=== PATIENT | female | born 1985 | race Caucasian/White ===

== ENCOUNTER 2022-07-05 10:46 | Emergency (ER) | payer MEDICAID ==
[~2022-07-05] VITALS: Ht 165.1 cm; Wt 104.8 kg
[2022-07-05 11:14] VITALS: BP 120/84
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
[2022-07-05] MEDS ORDERED: CYCL5TAB PO (12:09)
[2022-07-05] MEDS ORDERED: IBUP-1955 PO (12:09)
--- NOTE | 2022-07-05 12:19 | NUR ---
Patient discharged to home in stable condition. Written and verbal after care instructions given. Patient verbalizes understanding of instruction.
== END 2022-07-05 12:19 | disposition home or self-care (01) ==
LOC: ER 10:53
DX: S16.1XXA Strain of muscle, fascia and tendon at neck level, initial encounter (principal); M54.50 Low back pain, unspecified; V89.2XXA Person injured in unspecified motor-vehicle accident, traffic, initial encounter; Y93.89 Activity, other specified; Y92.89 Other specified places as the place of occurrence of the external cause; Y99.8 Other external cause status
CPT/HCPCS: 82962-TC

== ENCOUNTER 2022-10-31 09:36 | Emergency (ER) | payer MEDICAID ==
[~2022-10-31] VITALS: Ht 167.6 cm; Wt 93.0 kg
[~2022-10-31 09:36] MED LIST: CYCL5TAB PO; IBUP-1955 PO
[2022-10-31 09:44] VITALS: BP 102/74; TEMP 98.4
[2022-10-31] MEDS ORDERED: FAMOTIDINE (20 MG) 20 MG TABLET ONE (10:22)
[2022-10-31] MEDS ORDERED: predniSONE 20 MG TABLET ONE (10:22)
[2022-10-31] MEDS ORDERED: diphenhydrAMINE HCL 25 MG CAPSULE ONE (10:22)
[2022-10-31] MEDS ORDERED: PRED50TA PO (10:29)
[2022-10-31] MEDS ORDERED: FAMOTIDINE (20 MG) 20 MG TABLET PO ONE (10:30)
[2022-10-31] MEDS ORDERED: DIPHENHYDRAMINE HCL 12.5 MG/5 ML UDC PO ONE (10:30)
[2022-10-31] MEDS ORDERED: predniSONE 50 MG TABLET PO ONE (10:30)
[2022-10-31 11:16] VITALS: O2SAT 100
== END 2022-10-31 11:17 | disposition home or self-care (01) ==
LOC: ER 09:36
DX: R21 Rash and other nonspecific skin eruption (principal)
CPT/HCPCS: 99284; Q0163 ×2; J7512

== ENCOUNTER 2024-08-12 17:33 | Emergency (ER) | payer SELFPAY ==
[~2024-08-12] VITALS: Ht 165.1 cm; Wt 93.0 kg
[~2024-08-12 17:33] MED LIST changes: +PRED50TA PO
[2024-08-12] MEDS ORDERED: DICL100G34 TP (19:55)
[2024-08-12] MEDS ORDERED: IBUP-1490 PO (19:55)
[2024-08-12 20:15] VITALS: BP 109/71; TEMP 97.6; O2SAT 98
== END 2024-08-12 20:15 | disposition home or self-care (01) ==
LOC: ER 17:42
DX: M25.561 Pain in right knee (principal); Z79.52 Long term (current) use of systemic steroids
CPT/HCPCS: 73564-TC